=== PATIENT | female | born 1935 | race Caucasian/White ===

== ENCOUNTER 2022-08-17 07:50 | Inpatient (IN) | payer MEDICARE ==
[2022-08-17 08:34] LABS: ESTIMATED GFR 72 mL/min (>60)
[2022-08-17] MEDS ORDERED: Docusate Sodium 100 MG Cap PO PRN ×2 (11:14→11:24)
[2022-08-17] MEDS ORDERED: Loperamide 2 MG Cap PO PRN (12:41)
[2022-08-17] MEDS: Carboxymethylcellulose Sodium 0.5% Ophth Soln 15 ML Bottle EYEBOTH SCH ×2 (15:01→20:32)
[2022-08-17] MEDS: Acetaminophen 325 MG Tab PO PRN ×2 (15:06→20:36)
[2022-08-17] MEDS: DULoxetine 30 MG Cap PO SCH (20:30)
[2022-08-17] MEDS: Melatonin 3 MG Tab PO SCH (20:30)
[2022-08-17] MEDS: buPROPion 100 MG Tab.SR PO SCH (20:32)
[2022-08-17] MEDS: Sertraline 100 MG Tab PO SCH (20:33)
[2022-08-17] MEDS: Amitriptyline 10 MG Tab PO SCH (20:34)
[2022-08-18] MEDS: Pantoprazole 40 MG Tab.CR PO SCH (05:31)
[2022-08-18 06:50] LABS: ESTIMATED GFR 72 mL/min (>60)
[2022-08-18] MEDS: Carboxymethylcellulose Sodium 0.5% Ophth Soln 15 ML Bottle EYEBOTH SCH ×3 (09:03→21:09)
[2022-08-18] MEDS: Metoprolol Succinate 25 MG Tab.ER PO SCH (09:04)
[2022-08-18] MEDS: Diltiazem 120 MG Cap.CD PO SCH (09:04)
[2022-08-18] MEDS: DULoxetine 30 MG Cap PO SCH ×2 (09:04→21:07)
[2022-08-18] MEDS: buPROPion 100 MG Tab.SR PO SCH ×2 (09:05→21:09)
[2022-08-18] MEDS: Cholecalciferol (Vitamin D3) 25 MCG Tab PO SCH (09:05)
[2022-08-18] MEDS: Acetaminophen 325 MG Tab PO PRN ×2 (15:05→21:13)
[2022-08-18] MEDS: Amitriptyline 10 MG Tab PO SCH (21:08)
[2022-08-18] MEDS: Melatonin 3 MG Tab PO SCH (21:08)
[2022-08-18] MEDS: Sertraline 100 MG Tab PO SCH (21:10)
[2022-08-19] MEDS: Pantoprazole 40 MG Tab.CR PO SCH (05:21)
[2022-08-19 06:47] LABS: ESTIMATED GFR 72 mL/min (>60)
[2022-08-19] MEDS: Metoprolol Succinate 25 MG Tab.ER PO SCH (09:50)
[2022-08-19] MEDS: buPROPion 100 MG Tab.SR PO SCH ×2 (09:50→20:09)
[2022-08-19] MEDS: Cholecalciferol (Vitamin D3) 25 MCG Tab PO SCH (09:50)
[2022-08-19] MEDS: Carboxymethylcellulose Sodium 0.5% Ophth Soln 15 ML Bottle EYEBOTH SCH ×3 (09:51→20:08)
[2022-08-19] MEDS: Diltiazem 120 MG Cap.CD PO SCH (09:53)
[2022-08-19] MEDS: DULoxetine 30 MG Cap PO SCH ×2 (09:53→20:06)
[2022-08-19] MEDS: Apixaban 5 MG Tab PO SCH ×2 (10:08→20:13)
[2022-08-19] MEDS: Acetaminophen 325 MG Tab PO PRN ×2 (11:12→20:13)
[2022-08-19] MEDS: Amitriptyline 10 MG Tab PO SCH (20:07)
[2022-08-19] MEDS: Melatonin 3 MG Tab PO SCH (20:08)
[2022-08-19] MEDS: Sertraline 100 MG Tab PO SCH (20:10)
[2022-08-20] MEDS: Pantoprazole 40 MG Tab.CR PO SCH (05:08)
[2022-08-20] MEDS: Diltiazem 120 MG Cap.CD PO SCH (08:30)
[2022-08-20] MEDS: DULoxetine 30 MG Cap PO SCH ×2 (08:31→20:06)
[2022-08-20] MEDS: Carboxymethylcellulose Sodium 0.5% Ophth Soln 15 ML Bottle EYEBOTH SCH ×3 (08:31→20:05)
[2022-08-20] MEDS: Cholecalciferol (Vitamin D3) 25 MCG Tab PO SCH (08:32)
[2022-08-20] MEDS: buPROPion 100 MG Tab.SR PO SCH ×2 (08:32→20:08)
[2022-08-20] MEDS: Apixaban 5 MG Tab PO SCH ×2 (08:43→20:12)
[2022-08-20] MEDS: Acetaminophen 325 MG Tab PO PRN ×2 (08:44→20:08)
[2022-08-20] MEDS ORDERED: Metoprolol Succinate 50 MG Tab.ER PO SCH (09:00)
[2022-08-20] MEDS: Amitriptyline 10 MG Tab PO SCH (20:06)
[2022-08-20] MEDS: Melatonin 3 MG Tab PO SCH (20:07)
[2022-08-20] MEDS: Sertraline 100 MG Tab PO SCH (20:08)
== END 2022-08-21 13:10 | disposition home health service (06) | DRG 57 ==
LOC: FB.ED 07:50 → FB.MS 11:12
PROVIDERS: ADMIT Emergency Medicine; ATTEND Family Medicine
DX: I69.392 Facial weakness following cerebral infarction (principal); I48.20 Chronic atrial fibrillation, unspecified; I63.9 Cerebral infarction, unspecified; R29.810 Facial weakness; R47.1 Dysarthria and anarthria; Z66 Do not resuscitate; D64.9 Anemia, unspecified; I10 Essential (primary) hypertension; I65.23 Occlusion and stenosis of bilateral carotid arteries; M79.7 Fibromyalgia; K21.9 Gastro-esophageal reflux disease without esophagitis; G47.00 Insomnia, unspecified; D50.9 Iron deficiency anemia, unspecified; N32.81 Overactive bladder; N31.9 Neuromuscular dysfunction of bladder, unspecified; E55.9 Vitamin D deficiency, unspecified; M19.90 Unspecified osteoarthritis, unspecified site; F32.A Depression, unspecified; Z88.2 Allergy status to sulfonamides; Z88.6 Allergy status to analgesic agent; Z79.899 Other long term (current) drug therapy; Z88.8 Allergy status to other drugs, medicaments and biological substances; Z88.5 Allergy status to narcotic agent; D15.1 Benign neoplasm of heart; Z87.891 Personal history of nicotine dependence; Z90.710 Acquired absence of both cervix and uterus; I48.91 Unspecified atrial fibrillation; Z79.01 Long term (current) use of anticoagulants; H35.3230 Exudative age-related macular degeneration, bilateral, stage unspecified; E78.1 Pure hyperglyceridemia; Z51.5 Encounter for palliative care; I69.322 Dysarthria following cerebral infarction
CPT/HCPCS: 36415; 70450; 70551; 71046; 80048; 81001; 82272; 84484; 85025; 85027; 85610; 87086; 87088; 87186; 92522-GN; 92610-GN; 93880; 97161-GP; 97165-GO; 97530-GO; 99285; A9270-GY

== ENCOUNTER 2022-12-16 14:52 | Inpatient (IN) | payer MEDICARE, MEDICAID ==
[2022-12-16] MEDS: Sodium Chloride 0.9% 10 ML Syringe FLUSH PRN ×2 (15:25→16:21)
[2022-12-16 15:40] LABS: ESTIMATED GFR 55 mL/min (>60)
[2022-12-16 15:49] LABS: BASE EXCESS VENOUS,POC 3 mmol/L (-2 - 3+); PCO2 VENOUS,POC 41 mmHg (41-51); PH VENOUS,POC 7.44 pH Units (7.32-7.43)
[2022-12-16] MEDS ORDERED: Furosemide 40 MG/4 ML VIAL IVPUSH ONE (16:09)
[2022-12-16] MEDS ORDERED: Ondansetron 4 MG/2 ML SDV IV PRN (19:27)
[2022-12-16] MEDS: Enoxaparin 30 MG/0.3 ML Syringe SUBCUT SCH (20:33)
[2022-12-16] MEDS ORDERED: Acetaminophen 500 MG Tab PO PRN (22:24)
[2022-12-16] MEDS ORDERED: Melatonin 3 MG Tab PO SCH (22:30)
[2022-12-17 06:47] LABS: ESTIMATED GFR 62 mL/min (>60)
[2022-12-17] MEDS: Furosemide 40 MG/4 ML VIAL IVPUSH SCH (09:52)
[2022-12-17] MEDS: Potassium Chloride 20 MEQ Tab.ER PO SCH ×2 (09:53→20:08)
[2022-12-17] MEDS: Sodium Chloride 0.9% 10 ML Syringe FLUSH PRN (09:57)
[2022-12-17] MEDS ORDERED: MELATONIN 10 MG PO PRN (13:37)
[2022-12-17] MEDS ORDERED: Acetaminophen 325 MG Tab PO PRN (13:37)
[2022-12-17] MEDS ORDERED: Loperamide 2 MG Cap PO PRN (13:37)
[2022-12-17] MEDS: TIZANIDINE 4 MG PO SCH ×2 (15:21→20:37)
[2022-12-17] MEDS: CARBOXYMETHYLCELLULOSE SODIUM 0.5% EYEBOTH SCH ×2 (15:21→20:35)
[2022-12-17] MEDS: Enoxaparin 30 MG/0.3 ML Syringe SUBCUT SCH (19:30)
[2022-12-17] MEDS: DULoxetine 30 MG Cap PO SCH (20:07)
[2022-12-17] MEDS: buPROPion 100 MG Tab.SR PO SCH (20:36)
[2022-12-17] MEDS ORDERED: Amitriptyline 10 MG Tab PO SCH (21:00)
[2022-12-17] MEDS: TYLENOL ARTHRITIS 650 MG PO PRN (22:10)
[2022-12-18 07:00] LABS: ESTIMATED GFR 62 mL/min (>60)
[2022-12-18] MEDS: TYLENOL ARTHRITIS 650 MG PO PRN (08:26)
[2022-12-18] MEDS: Potassium Chloride 20 MEQ Tab.ER PO SCH ×2 (08:27→20:01)
[2022-12-18] MEDS: Metoprolol Succinate 25 MG Tab.ER PO SCH (08:28)
[2022-12-18] MEDS: Diltiazem 120 MG Cap.CD PO SCH (08:28)
[2022-12-18] MEDS: DULoxetine 30 MG Cap PO SCH ×2 (08:29→20:01)
[2022-12-18] MEDS: TIZANIDINE 4 MG PO SCH (08:29)
[2022-12-18] MEDS: buPROPion 100 MG Tab.SR PO SCH ×2 (08:30→20:00)
[2022-12-18] MEDS ORDERED: CARBOXYMETHYLCELLULOSE SODIUM 0.5% EYEBOTH SCH (09:00)
[2022-12-18] MEDS ORDERED: CHOLECALCIFEROL 50 MCG PO SCH (09:00)
[2022-12-18] MEDS: Sodium Chloride 0.9% 10 ML Syringe FLUSH PRN (09:31)
[2022-12-18] MEDS: Furosemide 40 MG/4 ML VIAL IVPUSH SCH (09:31)
[2022-12-18] MEDS: Docusate Sodium 100 MG Cap PO SCH (11:08)
[2022-12-18] MEDS ORDERED: tiZANidine 4 MG Tab PO SCH (11:16)
[2022-12-18] MEDS: tiZANidine 4 MG Tab PO SCH ×2 (13:47→20:00)
[2022-12-18] MEDS: Carboxymethylcellulose Sodium 0.5% Ophth Soln 15 ML Bottle EYEBOTH SCH ×2 (13:47→20:02)
[2022-12-18] MEDS: Sertraline 100 MG Tab PO SCH (20:00)
[2022-12-18] MEDS: Amitriptyline 10 MG Tab PO SCH (20:01)
[2022-12-18] MEDS: Enoxaparin 30 MG/0.3 ML Syringe SUBCUT SCH (20:02)
[2022-12-18] MEDS: Acetaminophen 650 MG Tab.ER PO PRN (22:18)
[2022-12-18] MEDS: Melatonin 3 MG Tab PO PRN (22:18)
[2022-12-19 06:46] LABS: ESTIMATED GFR 72 mL/min (>60)
[2022-12-19] MEDS: Pantoprazole 40 MG Tab.CR PO SCH (07:00)
[2022-12-19] MEDS: buPROPion 100 MG Tab.SR PO SCH ×2 (08:35→20:11)
[2022-12-19] MEDS: Diltiazem 120 MG Cap.CD PO SCH (08:35)
[2022-12-19] MEDS: Cholecalciferol (Vitamin D3) 25 MCG Tab PO SCH (08:35)
[2022-12-19] MEDS: Potassium Chloride 20 MEQ Tab.ER PO SCH ×2 (08:35→20:10)
[2022-12-19] MEDS: Carboxymethylcellulose Sodium 0.5% Ophth Soln 15 ML Bottle EYEBOTH SCH ×3 (08:36→20:10)
[2022-12-19] MEDS: DULoxetine 30 MG Cap PO SCH ×2 (08:36→20:10)
[2022-12-19] MEDS: Docusate Sodium 100 MG Cap PO SCH (08:36)
[2022-12-19] MEDS: tiZANidine 4 MG Tab PO SCH ×3 (08:36→20:11)
[2022-12-19] MEDS: Metoprolol Succinate 25 MG Tab.ER PO SCH (08:36)
[2022-12-19] MEDS: Furosemide 40 MG/4 ML VIAL IVPUSH SCH (09:23)
[2022-12-19] MEDS: Sodium Chloride 0.9% 10 ML Syringe FLUSH PRN (09:26)
[2022-12-19] MEDS: Amitriptyline 10 MG Tab PO SCH (20:10)
[2022-12-19] MEDS: Sertraline 100 MG Tab PO SCH (20:11)
[2022-12-19] MEDS: Enoxaparin 30 MG/0.3 ML Syringe SUBCUT SCH (20:12)
[2022-12-19] MEDS: Melatonin 3 MG Tab PO PRN (22:00)
[2022-12-19] MEDS: Acetaminophen 650 MG Tab.ER PO PRN (22:00)
[2022-12-20] MEDS: Pantoprazole 40 MG Tab.CR PO SCH (07:13)
[2022-12-20 07:26] LABS: ESTIMATED GFR 72 mL/min (>60)
[2022-12-20] MEDS: Metoprolol Succinate 25 MG Tab.ER PO SCH (08:00)
[2022-12-20] MEDS: tiZANidine 4 MG Tab PO SCH (08:00)
[2022-12-20] MEDS: Potassium Chloride 20 MEQ Tab.ER PO SCH (08:00)
[2022-12-20] MEDS: Cholecalciferol (Vitamin D3) 25 MCG Tab PO SCH (08:00)
[2022-12-20] MEDS: buPROPion 100 MG Tab.SR PO SCH (08:00)
[2022-12-20] MEDS: DULoxetine 30 MG Cap PO SCH (08:00)
[2022-12-20] MEDS: Diltiazem 120 MG Cap.CD PO SCH (08:01)
[2022-12-20] MEDS: Carboxymethylcellulose Sodium 0.5% Ophth Soln 15 ML Bottle EYEBOTH SCH (08:01)
[2022-12-20] MEDS: Docusate Sodium 100 MG Cap PO SCH (08:01)
[2022-12-20] MEDS ORDERED: Furosemide 20 MG Tab PO ONE (09:05)
== END 2022-12-20 10:20 | disposition home or self-care (01) | DRG 291 ==
LOC: FB.ED 14:52 → FB.MS 19:39 → OBSVTOIN 12-18 10:39
PROVIDERS: ADMIT Emergency Medicine; ATTEND Student in an Organized Health Care Education/Training Program
DX: I11.0 Hypertensive heart disease with heart failure (principal); R09.02 Hypoxemia; D64.9 Anemia, unspecified; I50.31 Acute diastolic (congestive) heart failure; D50.9 Iron deficiency anemia, unspecified; I48.91 Unspecified atrial fibrillation; I48.0 Paroxysmal atrial fibrillation; I69.322 Dysarthria following cerebral infarction; E78.1 Pure hyperglyceridemia; Z51.5 Encounter for palliative care; Z20.822 Contact with and (suspected) exposure to COVID-19; I35.1 Nonrheumatic aortic (valve) insufficiency; F32.A Depression, unspecified; K57.90 Diverticulosis of intestine, part unspecified, without perforation or abscess without bleeding; R32 Unspecified urinary incontinence; M81.0 Age-related osteoporosis without current pathological fracture; E55.9 Vitamin D deficiency, unspecified; M19.90 Unspecified osteoarthritis, unspecified site; K21.9 Gastro-esophageal reflux disease without esophagitis; Z88.1 Allergy status to other antibiotic agents; Z79.01 Long term (current) use of anticoagulants; Z88.2 Allergy status to sulfonamides; Z88.5 Allergy status to narcotic agent; Z88.8 Allergy status to other drugs, medicaments and biological substances; Z79.899 Other long term (current) drug therapy; Z90.710 Acquired absence of both cervix and uterus
CPT/HCPCS: 36415; 71045; 80048; 80053; 83880; 84484; 85025; 85610; 93005; 93010; 93306; 96372; 96374; 96376; 99222; 99232; 99238; 99285; 99285-25; A9270-GY; G0378; J1650; J1940; J3490; U0002

== ENCOUNTER 2023-01-10 10:10 | Emergency (ER) | payer MEDICARE, MEDICAID ==
[2023-01-10] MEDS ORDERED: Sodium Chloride 0.9% 10 ML Syringe FLUSH PRN (10:55)
[2023-01-10] MEDS ORDERED: Pantoprazole 40 MG Vial IVPUSH STA (10:58)
[2023-01-10] MEDS ORDERED: Sodium Chloride 0.9% 1,000 ML IV SCH ×2 (11:00→11:30)
[2023-01-10 11:19] LABS: ESTIMATED GFR 55 mL/min (>60)
[2023-01-10] MEDS ORDERED: Ondansetron 4 MG/2 ML SDV IVPUSH ONE (11:19)
[2023-01-10] MEDS ORDERED: Pantoprazole 40 MG Vial ONE (11:42)
[2023-01-10] MEDS ORDERED: Iopamidol 755 Mg/ML 75 ML Bottle IV ONE (13:20)
== END 2023-01-10 14:32 ==
LOC: FB.ED 10:10
DX: R19.7 Diarrhea, unspecified (principal); D50.9 Iron deficiency anemia, unspecified; I48.91 Unspecified atrial fibrillation; I10 Essential (primary) hypertension; K21.9 Gastro-esophageal reflux disease without esophagitis; M19.90 Unspecified osteoarthritis, unspecified site; Z79.01 Long term (current) use of anticoagulants; Z88.8 Allergy status to other drugs, medicaments and biological substances; Z88.1 Allergy status to other antibiotic agents; Z88.5 Allergy status to narcotic agent; Z88.2 Allergy status to sulfonamides; Z91.041 Radiographic dye allergy status; Z79.899 Other long term (current) drug therapy
CPT/HCPCS: 36415; 74177; 80053; 81001; 85025; 85610; 85730; 87086; 87088; 87186; 96361; 96374; 96375; 99285-25; C9113; J2405; J3490; J7030; Q9967

== ENCOUNTER 2023-06-28 11:31 | Emergency (ER) | payer MEDICARE, MEDICAID ==
[2023-06-28] MEDS ORDERED: Sulfamethoxazole/Trimethoprim 800-160 MG Tab PO ONE ×2 (11:32→13:56)
[2023-06-28] MEDS: Sodium Chloride 0.9% 10 ML Syringe FLUSH PRN ×2 (11:48→17:58)
[2023-06-28 11:58] LABS: HEMATOCRIT 26.3 % (34.2-48.2); MEAN CORPUSCULAR HEMOGLOBIN 21.1 pg (23.9-33.9); MEAN CORPUSCULAR HGB CONC 30.4 g/dL (31.9-34.8); MEAN CORPUSCULAR VOLUME 69.2 fL (76.7-100.5); MEAN PLATELET VOLUME 8.5 fL (7.1-12.4); PLATELET COUNT,PLT 293 x10(3)uL (151-488); RED BLOOD CELL COUNT 3.79 x10(6)uL (3.60-5.20); RED CELL DISTRIBUTION WIDTH 21.8 % (12.3-16.5); WHITE BLOOD CELL COUNT,WBC 13.5 x10-3/uL (3.0-10.3)
[2023-06-28 12:10] LABS: BLOOD UREA NITROGEN,BUN 23 mg/dL (7-18); CALCIUM 9.2 mg/dL (8.6-10.2); CARBON DIOXIDE,CO2 32 mmol/L (21-32); CHLORIDE,CL 97 mmol/L (100-110); EST CRCL DRUG DOSING (CG) 29.01 mL/min; ESTIMATED GFR 55 mL/min (>60); GLUCOSE RANDOM 117 mg/dL (80-116); SODIUM,NA 137 mmol/L (135-145)
[2023-06-28] MEDS ORDERED: Sodium Chloride 0.9% 250 ML IV SCH (12:15)
[2023-06-28 12:16] LABS: A/G RATIO 0.7; ALANINE AMINOTRANSFERASE,ALT 14 U/L (12-36); ALBUMIN 3.2 g/dL (3.2-4.6); ALKALINE PHOSPHATASE 180 IU/L (56-112); ASPARTATE AMNIOTRANSFERASE,AST 24 IU/L (5-25); BILIRUBIN TOTAL 0.5 mg/dL (0.1-1.3); PROTEIN TOTAL,TP 7.5 g/dL (6.0-8.0)
[2023-06-28 12:18] LABS: INR 1.01 (1.00-1.24); PROTHROMBIN TIME 10.4 sec (9.0-11.1)
[2023-06-28 12:21] LABS: PTT,PARTIAL THROMBOPLSTIN TIME 24.6 SECONDS (24.4-33.2)
[2023-06-28 12:36] LABS: LYMPHOCYTES PERCENT MAN 4 % (13-37); MONOCYTES PERCENT MAN 6 % (4-12); SEG NEUTROPHILS PERCENT MAN 90 % (46-82)
[2023-06-28 12:37] LABS: MICROCYTOSIS MODERATE
[2023-06-28 13:14] LABS: BILIRUBIN,URINE NEGATIVE (NEGATIVE); GLUCOSE,URINE NORMAL (NORMAL); KETONES,URINE NEGATIVE (NEGATIVE); LEUKOCYTE ESTERASE,URINE SMALL (NEGATIVE); NITRITE,URINE NEGATIVE (NEGATIVE); OCCULT BLOOD,URINE MODERATE (NEGATIVE); PH,URINE 6.5 (5.0-6.5); PROTEIN,URINE NEGATIVE (NEGATIVE); UROBILINOGEN,URINE NORMAL (NEGATIVE)
[2023-06-28 13:17] LABS: APPEARANCE,URINE CLOUDY (CLEAR); BACTERIA,URINE MANY (NS); COLOR,URINE YELLOW (YELLOW); RBC,URINE 0-5 (0-5); SQUAMOUS EPITHELIAL CELLS,UR FEW (NS,R,O); WBC,URINE 0-5 (0-5)
[2023-06-28] MEDS ORDERED: Diatrizoate Meglumine/Diatrizoate Sodium 37% 30 ML Bottle PO ONE (13:52)
[2023-06-28] MEDS ORDERED: Furosemide 20 MG/2 ML VIAL IVPUSH ONE (14:20)
[2023-06-28] MEDS ORDERED: Furosemide 20 MG/2 ML VIAL ONE (17:44)
== END 2023-06-28 20:10 ==
LOC: FB.ED 11:31
DX: D50.0 Iron deficiency anemia secondary to blood loss (chronic) (principal); C18.9 Malignant neoplasm of colon, unspecified; C78.7 Secondary malignant neoplasm of liver and intrahepatic bile duct; N39.0 Urinary tract infection, site not specified; K21.9 Gastro-esophageal reflux disease without esophagitis; I11.0 Hypertensive heart disease with heart failure; I50.9 Heart failure, unspecified; Z86.73 Personal history of transient ischemic attack (TIA), and cerebral infarction without residual deficits; Z88.6 Allergy status to analgesic agent; Z88.1 Allergy status to other antibiotic agents; Z91.041 Radiographic dye allergy status; Z88.2 Allergy status to sulfonamides; Z88.8 Allergy status to other drugs, medicaments and biological substances; Z79.899 Other long term (current) drug therapy
CPT/HCPCS: 36415; 36430; 71045; 71250; 74176; 80053; 81001; 85025; 85610; 85730; 86850; 86900; 86901; 86920; 86922; 87086; 87088; 87186; 96374; 99285; J1940; J3490; J7050; P9016; Q9963; A9270-GY